=== PATIENT | female | born 1960 | race Caucasian/White ===

== ENCOUNTER 2024-05-15 17:40 | Emergency (ER) | payer MEDICARE, MEDICAID, SELFPAY ==
[2024-05-15 17:41] VITALS: TEMP 36.7
--- NOTE | 2024-05-15 18:05 | ED.RN ---
1740. PT ARRIVES [facility]IA [facility], PT. EYES ROLLED BACK INTO HEAD, STARTED VOMITING FROM MOUTH AND NOSE. PULSES LOST EN ROUTE TO EMERGENCY ROOM. PT TO ROOM [address] ALCARAZ, ORAL RN, LAM RN, GONZALO RN, CHIRAG RN. CLARITA RN, MITZI MEDIC, AND KAYLEY TIRE MAKER. TO ROOM 1741- PEA ON MONITOR, CPR RESUMED. EPI GIVEN THROUGH EMS 20G IN WRIST. 174- PULSE CHECK EPI GIVEN PT PEA, CPR CONTINUED, PT SUCTIONED CONTINUED TO VOMIT. 174 PULSE CHECK PT. STILL PEA. 174 IV INFILTRATES 1747- IO IN LEFT TIB. PLACED. EPI GIVEN AND DEXTROSE 174- 100 OF SUC. GIVEN 174 PULSE CHECK PEA, CPR CONTINUED, EPI GIVEN. 1750 BICARB GIVEN- ADDITIONAL [address] ALCARAZ TRIES TO INTUBATE. 1751 20 OF ATOMIDATE 175- PULSE CHECK PEA, CPR CONTINUED EPI GIVEN 175 PULSE CHEK PEA, CPRE CONTINED EPI GIVEN. DR. ALCARAZ TRIES TO INTUBATE. 175 PULSE CHECK PEA EPI GIVEN, 7.5 21@LIP PLACED. 1801 PULSE CHECK PEA CPR CONTINUED 1802 EPI GIVEN. 1804 PULSE CHECK PT. STILL PEA, DR. ALCARAZ CALLS TOD
--- NOTE | 2024-05-15 18:10 | EDS_ITS ---
HPI History of Present Illness Chief Complaint: Unresponsive Informant: EMS Onset/Context/Timing Onset: Today Narrative Narrative: 63-year-old female from [facility]. Reportedly and this is from EMS because the patient is unable to give any history due to her severe medical condition. Patient was complaining of whole body pain and abdominal pain. She was being brought in by squad while they were unloading her to bring her to the emergency department. She vomited. Her pulse went from 128, to 72 PEA. She was unresponsive. Was vomiting. Patient was immediately taken to room 7. We started the code team. CPR was started immediately. She had peripheral access that was eventually lost and then we placed a tibial IO. Patient was given a total of 7 rounds of epinephrine 1 mg each. An amp of bicarb. Amp of D50. She was given etomidate and succinylcholine prior to intubation. ROS ROS ED ROS Narrative Unable to obtain from the patient due to her severe medical condition. Review of Systems ROS Unobtainable: other Details: Patient unresponsive. Coding. EXAM Physical Exam Narrative Exam Narrative: 63-year-old female. Presents in cardiopulmonary arrest. There is emesis coming from her mouth and nose which we are suctioning. She is completely unresponsive. H EENT exam her pupils are fixed and nonreactive. There is brown emesis coming from her mouth and nose. Dry mucous membranes. Neck trachea midline. No carotid pulses. Lungs no spontaneous respirations. With bagging she does have rhonchorous breath sounds concern for aspiration. Heart there is no audible cardiac activity. On the monitor she is PEA. No carotid or femoral pulses. Abdomen is distended. She does have a colostomy bag with gas in it. Extremities are flaccid and pale. She has no peripheral pulses. Neurologically she is completely unresponsive to noxious or verbal stimuli. Pupils were unresponsive. Const Vital Signs: 05/15/24 17:40 05/15/24 17:41 Temperature 98.1 F Temperature Source Temporal Respiratory Pattern Apneustic Positive well nourished and well developed; Negative for cachectic or contractures Constitutional Narrative: Pale. General Appearance ED: well developed; Negative for cachectic, contractures, cyanotic, diaphoretic or NAD Nutritional Appearance: Negative for cachectic HEENT Reports dry mucous membranes HEENT Narrative: Brown emesis coming from her nose and mouth. Pulled her posterior pharynx. We continued to suction and she continued to have excessive amounts of emesis. Patient has poor dentition and dry mucous membranes. Mouth ED: Yes dry mucous membranes Mouth: dry mucous membranes Eyes Negative for PERRL or EOMs intact bilaterally Eyes Narrative: Pupils fixed. Nonresponsive. General Eye ED: Yes pale conjunctiva Neck no lymphadenopathy and no JVD General: Negative for tenderness Chest Wall inspection of chest normal Resp No normal respiratory effort and No clear to auscultation bilaterally Resp Narrative: No spontaneous respirations. With bagging she had bilateral breath sounds but there was rhonchi consistent with possible aspiration from her emesis. Auscultation: rhonchi Cardio Rhythm: abnormal rhythm other (Pulses like they are activity. Occasional asystole. No pulses the entire time.) GI Negative for non-distended GI Narrative: Distended like possible bowel obstruction. Colostomy bag with air in it. Palpation: soft Extremity Negative for normal to inspection Extremity Narrative: Flaccid. Pale. No deformity. Neuro Neuro Narrative: Completely unresponsive to noxious stimuli. Sensorium / Orientation: Negative for alert Psych Psych Narrative: Unresponsive. Skin Skin Narrative: Pallor. MDM MDM MDM Narrative Medical decision making narrative: 63-year-old female presents cardiopulmonary arrest with significant emesis from her mouth and nose. On arrival we started a code team. CPR was started immediately. She was coded 22 minutes. She never had any spontaneous pulses. She remained either in PEA or asystole the entire time. She was initially intubated it was a difficult intubation due to the amount of emesis, anterior trachea and very difficult rigid jaw. She had bilateral breath sounds with the initial intubation. Patient received a total of seven 1 mg injections of epinephrine over the time of the code. She was given an amp of D50. An amp of bicarb. She received succinyl choline a total of 200 mg IV and etomidate 20. The entire time the patient never regained any pulses. After approximately 22 minutes the team was called. Patient had a Thomas catheter in place the urine looked very cloudy and most likely infected. Clinically on exam she may have had a bowel obstruction because she was distended and the amount of emesis she was having. We never had the ability to obtain any labs or imaging. History & Record Review Discussion w/independent historian: EMS personnel Additional record(s) reviewed:: No prior records Procedures Intubations Intubation Method: orotracheal Intubation Verification: Positive color change and Bilateral breath sounds confirmed Intubation Complications: vomited (Prior to attempted intubation patient had copious emesis from her mouth and nose. I think she aspirated well before we ever attempted intubation. We were able to initially place a 7 and half ET tube with good bilateral breath sounds. They were rhonchorous I suspect secondary to aspiration. She h) and apparent aspiration Discharge Plan Triage Chief Complaint: Unresponsive ED Provider: Mika Christine Dx/Rx/DC Orders Clinical Impression: Cardiopulmonary arrest, PEA (Pulseless electrical activity), Asystole, Vomiting, Aspiration into airway, Difficult intubation Primary Care Provider: Amor Rojas Referrals: Amor Rojas MD [Primary Care Provider] - Print Language: Azeri Disposition Disposition:
--- NOTE | 2024-05-15 19:03 | ED.RN ---
Normal Saline given 250ml
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
== END 2024-05-15 23:18 ==
PROVIDERS: Emergency Provider Emergency Medicine; PCP Family Medicine; Visit Provider Emergency Medicine
DX: I46.9 Cardiac arrest, cause unspecified (principal); Z93.3 Colostomy status; T17.918A Gastric contents in respiratory tract, part unspecified causing other injury, initial encounter; R11.10 Vomiting, unspecified; R10.9 Unspecified abdominal pain; R40.4 Transient alteration of awareness
CPT/HCPCS: 31500; 92950; 99283; A4216